=== PATIENT | female | born 1980 | race Caucasian/White ===

== ENCOUNTER → 2019-01-30 08:37 | Outpatient (CLI) | payer OTHER, SELFPAY ==
--- NOTE | 2019-01-30 08:38 | DI.US.S_ITS ---
ULTRASOUND OF LEFT BREAST: 01/30/2019 CLINICAL: Palpable left breast lump. Comparison is made to exam dated: 01/30/2019 [facility]. Real-time ultrasound of the left breast was performed. Ardon scale images of the real-time examination were reviewed. No abnormalities were seen sonographically in the left breast. IMPRESSION: NEGATIVE There is no sonographic evidence of malignancy. There is no abnormality seen in the left breast to correspond with the area of clinical concern and palpable abnormality in the upper outer quadrant which is consistent with normal fibroglandular tissue, however, clinical followup is recommended for persistent symptoms. A 1 year screening mammogram is recommended. This exam was interpreted at Station ID: [id number]. Electronically Signed By: Billy Hernandez M.D. aty/:01/30/2019 10:01:53 letter sent: Normal Exam Ultrasound BI-RADS: 1 Negative
--- NOTE | 2019-01-30 08:38 | DI.US.S_ITS ---
ULTRASOUND OF RIGHT BREAST: 01/30/2019 CLINICAL: Palpable right breast lump. Comparison is made to exam dated: 01/30/2019 [facility]. Real-time ultrasound of the right breast was performed. Ardon scale images of the real-time examination were reviewed. No abnormalities were seen sonographically in the right breast. IMPRESSION: NEGATIVE There is no sonographic evidence of malignancy. There is no abnormality seen in the right breast to correspond with the area of clinical concern and palpable abnormality in the upper outer quadrant which is consistent with normal fibroglandular tissue, however, clinical followup is recommended for persistent symptoms. A 1 year screening mammogram is recommended. This exam was interpreted at Station ID: [id number]. Electronically Signed By: Billy Hernandez M.D. aty/:01/30/2019 10:06:13 letter sent: Normal Exam Ultrasound BI-RADS: 1 Negative
--- NOTE | 2019-01-30 08:38 | DI.MG.S_ITS ---
BILATERAL DIGITAL DIAGNOSTIC MAMMOGRAM 3D/2D: 01/30/2019 CLINICAL: Bilateral breast lumps. Family history of breast cancer. Baseline exam. No prior exams were available for comparison. The tissue of both breasts is extremely dense, which lowers the sensitivity of mammography. No significant masses, calcifications, or other findings are seen in either breast. IMPRESSION: INCOMPLETE: NEEDS ADDITIONAL IMAGING EVALUATION There is no abnormality seen in the right breast to correspond with the area of clinical concern in the upper outer quadrant, however, ultrasound is recommended. There is no abnormality seen in the left breast to correspond with the area of clinical concern and palpable abnormality indicated by triangular marker in the upper outer quadrant, however, ultrasound is recommended. This exam was interpreted at Station ID: [id number]. NOTE: For mammograms, a report in lay terms will be sent to the patient. Approximately 15% of breast malignancies will not be visualized mammographically. In the management of a palpable breast mass, a negative mammogram must not discourage biopsy of a clinically suspicious lesion. SUMMARY: The recommended ultrasound is scheduled to immediately follow this examination. Electronically Signed By: Billy Hernandez M.D. aty/:01/30/2019 09:36:16 ACR BI-RADS Category 0: Incomplete 3340F
== END ==
PROVIDERS: Family Provider Specialist; PCP Family Medicine; Visit Provider Family Medicine
DX: R92.8 Other abnormal and inconclusive findings on diagnostic imaging of breast (principal); N63.11 Unspecified lump in the right breast, upper outer quadrant; N63.21 Unspecified lump in the left breast, upper outer quadrant; Z80.3 Family history of malignant neoplasm of breast
CPT/HCPCS: 76642; 77066; G0279

== ENCOUNTER → 2020-06-14 10:47 | Outpatient (CLI) | payer OTHER, SELFPAY ==
[2020-06-14 12:05] LABS: Cholesterol 186 mg/dL (140-199); Glucose 84 mg/dL (70-100); HDL Cholesterol 68 mg/dL (40-60); LDL Cholesterol Calculated 106 mg/dL (<100); Triglycerides 58 mg/dL (35-150)
== END ==
PROVIDERS: Family Provider Specialist; PCP Family Medicine; Referring Provider Family Medicine; Visit Provider Family Medicine
DX: Z13.1 Encounter for screening for diabetes mellitus (principal); Z13.220 Encounter for screening for lipoid disorders
CPT/HCPCS: 36415; 80061; 82947

== ENCOUNTER → 2020-07-03 14:39 | Outpatient (CLI) | payer OTHER, SELFPAY | PROVIDERS: Family Provider Specialist; PCP Family Medicine; Visit Provider Nurse Practitioner | DX: J02.9 Acute pharyngitis, unspecified (principal) | CPT/HCPCS: 87070 ==

== ENCOUNTER → 2020-09-27 10:53 | Outpatient (CLI) | payer OTHER, SELFPAY ==
--- NOTE | 2020-09-27 10:54 | DI.MG.S_ITS ---
BILATERAL DIGITAL SCREENING MAMMOGRAM 3D/2D WITH CAD: 09/27/2020 CLINICAL: Routine screening. Family history of breast cancer. Comparison is made to exam dated: 01/30/2019 [facility]. The tissue of both breasts is extremely dense, which lowers the sensitivity of mammography. Current study was also evaluated with a Computer Aided Detection (CAD) system. No significant masses, calcifications, or other findings are seen in either breast. There has been no significant interval change. IMPRESSION: NEGATIVE There is no mammographic evidence of malignancy. A 1 year screening mammogram is recommended. This exam was interpreted at Station ID: [id number]. NOTE: For mammograms, a report in lay terms will be sent to the patient. Approximately 15% of breast malignancies will not be visualized mammographically. In the management of a palpable breast mass, a negative mammogram must not discourage biopsy of a clinically suspicious lesion. Electronically Signed By: Adonay quinonez/derian:09/27/2020 12:40:28 letter sent: Normal Exam ACR BI-RADS Category 1: Negative 3341F
== END ==
PROVIDERS: Family Provider Specialist; PCP Family Medicine; Referring Provider Family Medicine; Visit Provider Family Medicine
DX: Z12.31 Encounter for screening mammogram for malignant neoplasm of breast (principal); Z80.3 Family history of malignant neoplasm of breast
CPT/HCPCS: 77063; 77067

== ENCOUNTER → 2021-10-29 17:15 | Outpatient (CLI) | payer OTHER, SELFPAY ==
--- NOTE | 2021-10-29 17:18 | DI.MG.S_ITS ---
BILATERAL DIGITAL SCREENING MAMMOGRAM 3D/2D WITH CAD: 10/29/2021 CLINICAL: Routine screening. Family history of breast cancer. Comparison is made to exams dated: 09/27/2020 mammogram, 01/30/2019 ultrasound, 01/30/2019 ultrasound, and 01/30/2019 mammogram - [facility]. The tissue of both breasts is extremely dense, which lowers the sensitivity of mammography. Current study was also evaluated with a Computer Aided Detection (CAD) system. No significant masses, calcifications, or other findings are seen in either breast. There has been no significant interval change. IMPRESSION: NEGATIVE There is no mammographic evidence of malignancy. A 1 year screening mammogram is recommended. This exam was interpreted at Station ID: [id number]. NOTE: For mammograms, a report in lay terms will be sent to the patient. Approximately 15% of breast malignancies will not be visualized mammographically. In the management of a palpable breast mass, a negative mammogram must not discourage biopsy of a clinically suspicious lesion. Electronically Signed By: Dk Oliveira M.D., jr/deiran:10/30/2021 08:26:56 letter sent: Normal Exam ACR BI-RADS Category 1: Negative 3341F
== END ==
PROVIDERS: Family Provider Specialist; PCP Family Medicine; Referring Provider Family Medicine; Visit Provider Family Medicine
DX: Z12.31 Encounter for screening mammogram for malignant neoplasm of breast (principal); Z80.3 Family history of malignant neoplasm of breast
CPT/HCPCS: 77063; 77067

== ENCOUNTER → 2022-09-21 11:05 | Outpatient (CLI) | payer OTHER, SELFPAY ==
[2022-09-21 12:32] LABS: Influenza A - CEPHEID Flu A NEGATIVE (NEGATIVE); Influenza B - CEPHEID Flu B NEGATIVE (NEGATIVE); Respiratory Syncytial Virus Negative (Negative)
[2022-09-21 12:35] LABS: COVID-19 CEPHEID 4-PLEX PCR Negative (Negative)
== END ==
PROVIDERS: Family Provider Specialist; PCP Family Medicine; Visit Provider Nurse Practitioner Family
DX: J02.9 Acute pharyngitis, unspecified (principal); R50.9 Fever, unspecified
CPT/HCPCS: 0241U; 87070

== ENCOUNTER → 2023-05-19 08:05 | Outpatient (CLI) | payer OTHER, SELFPAY ==
--- NOTE | 2023-05-19 | DI.MG.S_ITS ---
BILATERAL DIGITAL SCREENING MAMMOGRAM 3D/2D WITH CAD: 05/19/2023 CLINICAL: Routine screening. Family history of breast cancer. Comparison is made to exams dated: 09/27/2020 mammogram, 10/29/2021 mammogram, and 01/30/2019 mammogram - [facility]. Both breasts are extremely dense, which lowers the sensitivity of mammography (category d />75% glandular tissue). Current study was also evaluated with a Computer Aided Detection (CAD) system. No significant masses, calcifications, or other findings are seen in either breast. There has been no significant interval change. IMPRESSION: NEGATIVE There is no mammographic evidence of malignancy. A 1 year screening mammogram is recommended. Based on Tyrer-Cuzick model (a risk assessment model), the patient's lifetime risk is 24.5% and her 10 year risk is 4.4%. If a patient has an elevated risk, a more comprehensive evaluation should be considered and/or a referral to a genetic counselor. The [place] [employer], [employer], and NCCN Guidelines advise the consideration of Breast MRI as an adjunct to screening mammography in patients whose Lifetime risk to develop breast cancer is 20% or higher. This exam was interpreted at Station ID: [id number]. NOTE: For mammograms, a report in lay terms will be sent to the patient. Approximately 15% of breast malignancies will not be visualized mammographically. In the management of a palpable breast mass, a negative mammogram must not discourage biopsy of a clinically suspicious lesion. Electronically Signed By: Raad robison/derian:05/19/2023 16:18:30 letter sent: Normal Exam ACR BI-RADS Category 1: Negative 3341F
== END ==
PROVIDERS: Family Provider Specialist; PCP Family Medicine; Referring Provider Family Medicine; Visit Provider Family Medicine
DX: Z12.31 Encounter for screening mammogram for malignant neoplasm of breast (principal); Z80.3 Family history of malignant neoplasm of breast
CPT/HCPCS: 77063; 77067

== ENCOUNTER → 2023-06-15 10:45 | Outpatient (CLI) | payer OTHER, SELFPAY ==
--- NOTE | 2023-06-15 10:47 | DI.MRI.S_ITS ---
BREAST MRI OF BOTH BREASTS: 06/15/2023 CLINICAL: INCREASED RISK OF BREAST CANCER. TECHNIQUE: The patient was placed prone in a dedicated breast imaging coil. Precontrast axial STIR and 3D FLASH without fat saturation sequences were obtained. Both before and after bolus injection of contrast, sequential 1-minute axial 3D FLASH with fat saturation sequences for 3 time points, with subtraction images and maximum intensity projections (MIP's) generated. Delayed sagittal FLASH images with fat saturation were also obtained. 20 cc ProHance gadolinium based IV contrast was administered without complication. Computer-aided detection, including computer algorithm analysis of MRI image data for lesion detection and characterization, pharmacokinetic analysis, with further physician review for interpretation, was performed. COMPARISON: [facility], SCREENING MAMMO BI, 09/27/2020, 11:13. [facility], SCREENING MAMMO BI, 10/29/2021, 17:36. [facility], MM SCREENING MAMMO BI, 05/19/2023, 8:13. FINDINGS: Image quality: Excellent. There is moderate bilateral background parenchymal enhancement. Right breast: No suspicious mass or non masslike enhancement. Left breast: No suspicious mass or non masslike enhancement. Miscellaneous: No axillary or internal mammary chain adenopathy. The visible portions of the chest wall, liver, heart, and lungs appear normal. IMPRESSION: NEGATIVE 1. No abnormal enhancement in either breast. 2. No adenopathy. 3. Recommend continue screening mammogram and breast MRI. BIRADS 1, negative COMMENT: The imaging literature indicates that a negative contrast breast MRI examination has a high sensitivity and a moderate specificity for detecting and excluding invasive carcinomas to a detection threshold of 3-5 mm; nonetheless, appropriate clinical and mammographic follow-up are recommended. MRI is not sensitive for detecting DCIS (ductal carcinoma in situ) and may not detect large invasive neoplasms that show only minimal enhancement such as mucinous carcinoma. If there are suspicious calcifications or clinically worrisome palpable masses, then biopsy should still be considered. Invasive neoplasms can be hidden by co-existent and benign enhancement caused by mastitis, hormone therapy effects, radiation therapy, , and recent biopsy or surgery. False positive examinations can occur in a number of circumstances, including breasts that have recently been subject to invasive procedures and those that contain atypical ductal hyperplasia, hormonally stimulated glandular tissue, fat necrosis, or radial scars. This exam was interpreted at Station ID: [id number]. Electronically Signed By: Inés colon/:06/15/2023 15:31:23 ACR BI-RADS Category 1: Negative 3341F
== END ==
PROVIDERS: Family Provider Specialist; PCP Family Medicine; Referring Provider Family Medicine; Visit Provider Family Medicine
DX: Z12.39 Encounter for other screening for malignant neoplasm of breast (principal)
CPT/HCPCS: 77049; A9579

== ENCOUNTER → 2024-05-23 13:35 | Outpatient (CLI) | payer OTHER, SELFPAY ==
[2024-05-23 14:28] LABS: Influenza A - CEPHEID Flu A NEGATIVE (NEGATIVE); Influenza B - CEPHEID Flu B NEGATIVE (NEGATIVE); Respiratory Syncytial Virus Negative (Negative)
[2024-05-23 14:34] LABS: COVID-19 CEPHEID 4-PLEX PCR Negative (Negative)
== END ==
PROVIDERS: Family Provider Specialist; PCP Family Medicine; Visit Provider Nurse Practitioner Family
DX: R05.1 Acute cough (principal)
CPT/HCPCS: 0241U

== ENCOUNTER → 2024-06-09 09:17 | Outpatient (CLI) | payer OTHER, SELFPAY ==
--- NOTE | 2024-06-09 09:19 | DI.MG.S_ITS ---
BILATERAL DIGITAL SCREENING MAMMOGRAM 3D/2D WITH CAD: 06/09/2024 CLINICAL: Routine screening. Family history of breast cancer. Comparison is made to exams dated: 05/19/2023 mammogram, 10/29/2021 mammogram, and 09/27/2020 mammogram - [facility]. The breasts are extremely dense, which lowers the sensitivity of mammography (category d />75% glandular tissue). Current study was also evaluated with a Computer Aided Detection (CAD) system. No significant masses, calcifications, or other findings are seen in either breast. There has been no significant interval change. IMPRESSION: NEGATIVE There is no mammographic evidence of malignancy. A 1 year screening mammogram is recommended. Based on Tyrer-Cuzick model (a risk assessment model), the patient's lifetime risk is 24.5% and her 10 year risk is 4.7%. If a patient has an elevated risk, a more comprehensive evaluation should be considered and/or a referral to a genetic counselor. The [place] [employer], [employer], and NCCN Guidelines advise the consideration of Breast MRI as an adjunct to screening mammography in patients whose Lifetime risk to develop breast cancer is 20% or higher. This exam was interpreted at Station ID: [id number]. NOTE: For mammograms, a report in lay terms will be sent to the patient. Approximately 15% of breast malignancies will not be visualized mammographically. In the management of a palpable breast mass, a negative mammogram must not discourage biopsy of a clinically suspicious lesion. Electronically Signed By: Raad robison/deiran:06/09/2024 13:02:09 letter sent: Normal Exam ACR BI-RADS Category 1: Negative
== END ==
PROVIDERS: Family Provider Specialist; PCP Family Medicine; Referring Provider Family Medicine; Visit Provider Family Medicine
DX: Z12.31 Encounter for screening mammogram for malignant neoplasm of breast (principal); Z80.3 Family history of malignant neoplasm of breast; R92.343 Mammographic extreme density, bilateral breasts
CPT/HCPCS: 77063; 77067

== ENCOUNTER → 2024-07-20 12:59 | Outpatient (CLI) | payer OTHER, SELFPAY ==
[2024-07-20 14:00] LABS: Influenza A - CEPHEID Flu A NEGATIVE (NEGATIVE); Influenza B - CEPHEID Flu B NEGATIVE (NEGATIVE); Respiratory Syncytial Virus Negative (Negative)
[2024-07-20 14:03] LABS: COVID-19 CEPHEID 4-PLEX PCR Negative (Negative)
== END ==
PROVIDERS: Family Provider Specialist; PCP Family Medicine; Visit Provider Physician Assistant Medical
DX: R05.1 Acute cough (principal); J02.9 Acute pharyngitis, unspecified
CPT/HCPCS: 0241U; 87070

== ENCOUNTER → 2024-08-03 15:47 | Outpatient (CLI) | payer OTHER, SELFPAY | PROVIDERS: Family Provider Specialist; PCP Family Medicine; Visit Provider Physician Assistant Surgical | DX: N89.8 Other specified noninflammatory disorders of vagina (principal) | CPT/HCPCS: 87210 ==

== ENCOUNTER → 2024-12-07 08:48 | Outpatient (CLI) | payer OTHER, SELFPAY ==
--- NOTE | 2024-12-07 08:49 | DI.MRI.S_ITS ---
MR breast BI wo/w con: 12/07/2024. BI-RADS: 1 CLINICAL: 44-year old female for bilateral diagnostic breast MRI. No personal or first-degree family history of breast cancer. Current reported family history of breast cancer: maternal aunt. PRIOR EXAMS 06/09/2024, 06/15/2023, 05/19/2023, 10/29/2021, 09/27/2020, 01/30/2019. MRI TECHNIQUE Bilateral breast MRI was performed on a 1.5 Juani magnet using a dedicated breast coil with mild compression. Axial T1 and T2 STIR sequences were obtained. Dynamic contrast enhanced VIBRANT fat-suppressed sequences were obtained. Delayed sagittal high resolution or sagittal reconstructed isotropic sequence was also obtained. Subtraction images and maximum intensity projection images were obtained. The study was evaluated using Agent Panda software. 20 mL ProHance was injected intravenously. FIBROGLANDULAR TISSUE Bilateral: C. Heterogeneous fibroglandular tissue. BACKGROUND PARENCHYMAL ENHANCEMENT Bilateral: Marked symmetrical background parenchymal enhancement. BREAST FINDINGS Left: Axilla: There is stable accessory breast tissue. Bilateral: There is no suspicious mass or non-mass enhancement. There are no abnormal axillary or internal mammary lymph nodes. IMPRESSION: * Evaluation is limited by marked background parenchymal enhancement. * No evidence of malignancy. RECOMMENDATIONS Bilateral * Recommend consideration for annual screening breast MRI as an adjunct to screening mammography, if patient has an elevated lifetime risk of breast cancer. * Annual screening mammography in six months. OVERALL ASSESSMENT CATEGORY BI-RADS-1: Negative. ELECTRONICALLY SIGNED: Delmy De Oliveira M.D. on 12/07/2024 at 05:56:42 PM PT Interpreting Station ID: [id number]
== END ==
PROVIDERS: Family Provider Specialist; PCP Family Medicine; Referring Provider Family Medicine; Visit Provider Family Medicine
DX: R92.8 Other abnormal and inconclusive findings on diagnostic imaging of breast (principal); Z80.3 Family history of malignant neoplasm of breast; R92.333 Mammographic heterogeneous density, bilateral breasts
CPT/HCPCS: 77049; A9579

== ENCOUNTER 2025-03-26 09:32 | Day surgery (SDC) | payer OTHER, SELFPAY ==
[2025-03-26 10:14] VITALS: BP 92/60; PULSE 58; RESP 14; TEMP 36.8; O2SAT 100
--- NOTE | 2025-03-26 10:24 | PM.HP.IH.1 ---
History of Present Illness History of Present Illness Date Patient Seen: 03/26/25 Chief complaint: Screening Colonoscopy Narrative: For screening colonoscopy [facility] Medical History (Updated 01/15/25 @ 10:39 by Cara Valenzuela MD) Spontaneous vaginal delivery Family History Father Colon cancer Hypertension High cholesterol Sister Age: 69 Thyroid cancer Social History alcohol intake: current substance use type: does not use Meds Home Medications and Allergies Home Medications ?Medication ?Instructions ?Recorded ?Confirmed ?Type levonorgestrel 21 mcg/24 hr (up to intrauterine 11/19/23 01/15/25 History 8 years) 52 mg intrauterine device (Mirena) fluconazole 150 mg tablet 150 mg PO Q3D #2 tabs 01/15/25 01/15/25 Rx metronidazole 500 mg tablet 500 mg PO BID 01/15/25 01/15/25 History valacyclovir 1 gram tablet 2,000 mg (2 x 1 gram) PO BID #8 01/15/25 01/15/25 Rx tabs sodium,potassium,mag sulfates 17.5 See Rx Instructions PO .COMPLEX 02/15/25 Rx gram-3.13 gram-1.6 gram oral soln #354 mL (Suprep Bowel Prep Kit) Allergies Allergy/AdvReac Type Severity Reaction Status Date / Time No Known Drug Allergies Allergy Verified 01/15/25 09:07 Exam Narrative Exam Narrative: Oropharynx free of lesions Chest clear to auscultation percussion Cardiac exam reveals no S3 or murmur Assessment & Plan Assessment & Plan narrative: For screening colonoscopy. Risks, benefits, alternatives have been explained. Time-Based Coding :: [TOTAL MINUTES] spent with patient and on the chart (including review of chart, obtaining history, exam, reviewing outside data, placing orders, documenting exam and treatment plan, and counseling patient) on [DATE]. 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
--- NOTE | 2025-03-26 10:25 | PM.OP.COLON ---
Operative Date/Time/Diagnoses Date of procedure: 03/26/25 Time of procedure: 11:32 Pre-op diagnosis: See indication and findings Post-op diagnosis: same Procedure & Clinicians Study performed: Colonoscopy Same procedure(s) as scheduled: Yes Indications: First screening Surgeon: River Miller Anesthesia Type: Other Procedure Notes Procedure in detail: After informed consent was obtained the patient was placed in left lateral decubitus position. The video colonoscope was introduced the rectum slowly advanced cecum. Preparation was good. On slow withdrawal mucosa was carefully noted. The scope was removed. The patient tolerated procedure well. Blood loss none complications none Sedation mac Findings One. Normal colonoscopy to cecum Patient does not need follow-up colonoscopy for 10
[2025-03-26] MEDS: LACTATED RINGERS 1,000 ML 42 ML IV (10:45)
[2025-03-26 11:35] VITALS: BP 96/49; PULSE 66; RESP 15; TEMP 36.4; O2SAT 98
[2025-03-26 11:40] VITALS: BP 96/52; PULSE 66; RESP 12; O2SAT 100
[2025-03-26 11:51] VITALS: BP 97/54; PULSE 58; RESP 12; O2SAT 100
== END 2025-03-26 12:10 | disposition home or self-care (01) ==
PROVIDERS: Family Provider Specialist; PCP Family Medicine; Referring Provider Family Medicine; Visit Provider Internal Medicine Gastroenterology
PROC: 0DJD8ZZ Inspection of Lower Intestinal Tract, Via Natural or Artificial Opening Endoscopic (ICD-10-PCS; CPT 45378; principal; 2025-03-26 10:30)
DX: Z12.11 Encounter for screening for malignant neoplasm of colon (principal)
CPT/HCPCS: G0121; J2704

== ENCOUNTER → 2025-08-11 10:54 | Outpatient (CLI) | payer OTHER, SELFPAY ==
--- NOTE | 2025-08-11 11:01 | DI.MG.S_ITS ---
MM screening mammo BI: 08/11/2025. BI-RADS: 1 CLINICAL: 44-year old female for bilateral screening mammogram. Tyrer-Cuzick lifetime risk of 14.6%. No personal or first-degree family history of breast cancer. Current reported family history of breast cancer: maternal aunt. PRIOR EXAMS Breast MRI(s): 12/07/2024. Eight Other Exams on 06/09/2024, 06/15/2023, 05/19/2023, MAMMOGRAPHY TECHNIQUE: 2D and 3D (tomosynthesis) digital mammographic views obtained, with additional images as needed for full coverage. Current study was also evaluated with a Computer Aided Detection (CAD) system. DENSITY C. The breasts are heterogeneously dense, which may obscure small masses. MAMMOGRAPHY FINDINGS Bilateral: No suspicious mass, asymmetry, microcalcification, or other abnormality seen. IMPRESSION: * No evidence of malignancy. RECOMMENDATIONS Bilateral * Annual screening mammography. OVERALL ASSESSMENT CATEGORY BI-RADS-1: Negative. The [employer] recommends annual screening mammography beginning at age 40 for women with average risk of breast cancer. ELECTRONICALLY SIGNED: Billy Hernandez M.D. on 08/13/2025 at 08:02:27 AM PT Interpreting Station ID: [id number]
== END ==
LOC: MAMMO 11:00
PROVIDERS: PCP Family Medicine; Referring Provider Family Medicine; Visit Provider Family Medicine
DX: Z12.31 Encounter for screening mammogram for malignant neoplasm of breast (principal); R92.333 Mammographic heterogeneous density, bilateral breasts; Z80.3 Family history of malignant neoplasm of breast
CPT/HCPCS: 77063; 77067